=== PATIENT | female | born 2005 | race African-American/Black ===

== ENCOUNTER 2025-04-18 10:36 | Emergency (ER) | payer SELFPAY ==
[2025-04-18 10:43] VITALS: BP 128/86
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
[2025-04-18 12:00] VITALS: BP 127/70
[2025-04-18 13:37] LABS: HCG, Urine Qualitative Screen Negative
[2025-04-18 14:00] VITALS: BP 122/72
[2025-04-18] MEDS: PLAN B ONE-STEP, NEXT CHOICE 1 TABLET PO (15:47)
[2025-04-18] MEDS: VIBRAMYCIN 100 MG PO (15:47)
[2025-04-18] MEDS: FLAGYL 500 MG PO (15:47)
[2025-04-18] MEDS: ZOFRAN ODT (ORALLY DISINTEGRATING) 4 MG PO (15:47)
[2025-04-18] MEDS: ROCEPHIN 500 MG IM (15:47)
[2025-04-18 16:32] LABS: HCG, Serum Qualitative Screen Negative
[2025-04-18 16:37] LABS: ALT (SGPT) 19 U/L (0-35); AST (SGOT) 22 U/L (14-36); Albumin 4.6 g/dl (3.5-5.0); Alkaline Phosphatase 42 U/L (38-126); Blood Urea Nitrogen 10 mg/dl (7-17); Calcium 9.3 mg/dl (8.4-10.2); Carbon Dioxide 26 mmol/L (22-30); Chloride 102 mmol/L (98-107); Glucose 141 mg/dl (70-99); Potassium 3.9 mmol/L (3.5-5.1); Sodium 137 mmol/L (135-145); Total Protein 7.1 g/dl (6.3-8.2); eGFR > 60.00
== END 2025-04-18 17:00 | disposition home or self-care (01) ==
LOC: EMR 10:36
PROVIDERS: EMERGENCY PHYSICIAN Emergency Medicine
DX: Z04.41 Encounter for examination and observation following alleged adult rape (principal); R10.20 Pelvic and perineal pain unspecified side
CPT/HCPCS: 96372; 99285; 80053; 81025; 84703